=== PATIENT | female | born 1985 | race Asian ===

== ENCOUNTER 2018-03-06 10:01 | Emergency (ER) | payer SELFPAY ==
[~2018-03-06] VITALS: Ht 152.4 cm; Wt 66.3 kg
--- NOTE | 2018-03-06 10:04 | NUR ---
PATIENT AMBULATED TO BED 4 AT THIS TIME.
[2018-03-06 10:05] VITALS: BP 128/51
[2018-03-06] MEDS ORDERED: ALBUTEROL 0.083% 2.5 MG/3 ML NEBU INH ONE ×2 (10:10→11:00)
[2018-03-06] MEDS ORDERED: ALBUTEROL SULFATE/IPRATROPIU 3 ML SOL IH ONE ×3 (10:10→11:00)
[2018-03-06] MEDS ORDERED: predniSONE 20 MG TAB PO ONE (10:10)
--- NOTE | 2018-03-06 10:11 | NUR ---
PATIENT PRESENTS TO ED WITH THE CHIEF C/O SOB SINCE LAST NIGHT. USING ALBUTEROL MN/INHALER WITH NO RELIEF. HX OF ASTHMA. AFEBRILE. WHEEZING LUNGS ALL OVER. C/O N. NO VOMITING NOTED. SKIN IS PINK/WARM/DRY; AAOX4 WITH EVEN AND STEADY GAIT; PT DENIES ANY FEVER, CP. HAS SOB, AND DRY COUGH AT THIS TIME. O2 SAT 88% IN ROOM AIR.KEPT PT ON O2 AT 2 LTR/MIN. KEPT OB ELEVATED. PATIENT STATES THROAT PAIN AND HEADACHE OF 8/10 AT THIS TIME; VSS; PATIENT POSITIONED FOR COMFORT; HOB ELEVATED; BEDRAILS UP X2; BED DOWN. ER MD MADE AWARE OF PT STATUS.
[2018-03-06] MEDS ORDERED: KETOROLAC 60 MG/2 ML VIAL IM ONE (10:40)
--- NOTE | 2018-03-06 10:49 | NUR ---
PT VERBALIZED FEELING BETTER. DENIES DIFFICULTY BREATHING NOW. CONTINUE ON O2 AT 2 LTR/MIN. SPO2 96 %. SITTING IN BED.
--- NOTE | 2018-03-06 11:45 | NUR ---
DENIED SOB OR DIFFICULTY BREATHING SATURATING 95-96% IN ROOM AIR.
--- NOTE | 2018-03-06 11:51 | NUR ---
Patient discharged with v/s stable. Written and verbal after care instructions given and explained. Patient alert, oriented and verbalized understanding of instructions. Ambulatory with steady gait. All questions addressed prior to discharge. ID band removed. Patient advised to follow up with PMD. Rx of ALBUTEROL, PREDNISONE given. Patient educated on indication of medication including possible reaction and side effects. Opportunity to ask questions provided and answered.
[2018-03-06 11:53] VITALS: BP 125/84
== END 2018-03-06 11:51 | disposition home or self-care (01) ==
LOC: MED 10:01
DX: J45.901 Unspecified asthma with (acute) exacerbation (principal)
CPT/HCPCS: 94640; 96372; 99284; J1885; J7512; J7613; J7620

== ENCOUNTER 2022-12-15 21:32 | Emergency (ER) | payer OTHER | END 2022-12-15 23:29 | disposition left against medical advice (07) | LOC: MED 21:32 | DX: R06.02 Shortness of breath (principal); Z53.21 Procedure and treatment not carried out due to patient leaving prior to being seen by health care provider ==